=== PATIENT | male | born 1995 | race Caucasian/White ===

== ENCOUNTER 2023-08-06 20:01 | Emergency (ER) | payer BC ==
[2023-08-06] MEDS ORDERED: cefTRIAXone (ROCEPHIN) 1 GM VIAL ONE ×2 (20:27→20:32)
[2023-08-06] MEDS ORDERED: Sterile Water 10 ML ONE (20:32)
== END 2023-08-06 20:59 | disposition home or self-care (01) ==
LOC: BURERS 20:01
DX: L03.116 Cellulitis of left lower limb (principal)
CPT/HCPCS: 96372; 99283; J0696